=== PATIENT | male | born 1935 | race Caucasian/White ===

== ENCOUNTER 2020-08-26 16:11 | Emergency (ER) | payer MEDICARE, OTHER, SELFPAY ==
--- NOTE | ~2020-08-26 | CT_ITS ---
EXAMINATION: CT ABDOMEN AND PELVIS WITHOUT CONTRAST CLINICAL INFORMATION: Left lower quadrant pain. Diverticulitis. COMPARISON: CT abdomen/pelvis dated 05/11/2018. TECHNIQUE: Multidetector volumetric imaging was performed from the superior aspect of the liver through the pubic symphysis. Sagittal and coronal reformatted images were obtained on the technologist's workstation. This CT examination was performed using dose optimization techniques as appropriate, variously including the following: *Automated exposure control *Adjustment of mA and/or kV according to patient size (this includes techniques or standardized protocols for targeted exams where dose is matched to indication/reason for exam; i.e. extremities or head) *Use of iterative reconstruction technique DLP: 442 mGy-cm FINDINGS: LUNG BASES: The visualized lung bases are unremarkable. LIVER, GALLBLADDER, AND BILIARY TREE: Postsurgical change redemonstrated adjacent to the left hepatic lobe. No discrete hepatic parenchymal lesion or biliary ductal dilatation. Evaluation limited without IV contrast. Status post cholecystectomy. PANCREAS: Unremarkable. SPLEEN: Splenomegaly, new when compared to the prior CT. ADRENAL GLANDS: Severe bilateral adrenal thickening, new when compared to the prior examination. KIDNEYS AND URETERS: Mild bilateral renal cortical thinning. Redemonstration of multiple bilateral renal stones. The largest is on the left within the upper pole, measuring up to 0.7 cm and 1454 Hounsfield units. This is located approximately 6 cm from the posterior axillary line. Stones have increased in prominence when compared to the prior CT. No hydronephrosis or hydroureter. BLADDER: Unremarkable. GASTROINTESTINAL TRACT: Small, sliding hiatal hernia. Sigmoid diverticulosis without evidence of acute diverticulitis. No bowel wall thickening or associated inflammatory change. The appendix is not identified. No small or large bowel obstruction. The previously seen small bowel obstruction has resolved. PERITONEAL CAVITY: No intra-abdominal free air or free fluid. No intra-abdominal mass or organized fluid collection/abscess formation. ABDOMINAL WALL: No significant hernia is appreciated. LYMPH NODES: Normal. VASCULAR: No abdominal aortic dilatation. Atherosclerotic calcifications throughout the abdominal aorta and its branch vessels. Unremarkable IVC. PELVIC VISCERA: Prostate calcifications. OSSEOUS STRUCTURES: Diffuse sclerosis throughout the osseous structures, increased when compared to the prior CT and consistent with metastases. Redemonstration of a compression deformity at L1, unchanged. CT/CT abdomen pelvis wo con IMPRESSION: 1. Small, sliding hiatal hernia. Diverticulosis without evidence of acute diverticulitis. No small or large bowel obstruction. 2. Splenomegaly, new when compared to the prior CT. 3. Severe bilateral adrenal thickening, new when compared to the prior CT. Findings are concerning for metastatic disease. 4. Diffuse sclerotic foci throughout the osseous structures, increased in prominence when compared to the prior examination and consistent with osseous metastases. 5. Multiple bilateral renal stones, increased in size and number when compared to the prior examination. No hydronephrosis or hydroureter. 6. No intra-abdominal ascites or lymphadenopathy.
[2020-08-26 16:18] VITALS: BP 158/89; PULSE 95; RESP 16; TEMP 36.7; O2SAT 99; BMI 24.7
--- NOTE | 2020-08-26 17:33 | ED_ITS ---
HPI - Abdominal Pain General Chief Complaint: Abdominal Pain Stated Complaint: Abdominal pain Time Seen by Provider: 08/26/20 17:33 Source: patient Mode of arrival: ambulatory Limitations: no limitations History of Present Illness HPI narrative: Patient complaining of left lower abdominal pain nor eating well for last few days pain is has improved now no diarrhea no vomiting has slight nausea, no blood in the stool now patient says he feels fine no fever or chills no urinary complaints patient does have history of diverticulosis Related Data Allergies Allergy/AdvReac Type Severity Reaction Status Date / Time No Known Allergies Allergy Unverified 10/28/19 19:39 [No Known Allergies*] Review of Systems Review of Systems Yes all other systems are reviewed and are negative Physical Exam Vital Signs: Vital Signs: Last Vital Signs Temp 98.1 F 08/26/20 20:00 Pulse 68 08/26/20 20:00 Resp 16 08/26/20 20:00 BP 153/80 H 08/26/20 20:00 Pulse Ox 98 08/26/20 20:00 Body Mass Index 24.7 Appearance: Alert. Oriented X3. No acute distress. Eyes: PERRLA, No Nystagmus ENT: Pharynx normal. Oral Mucosa moist Neck: Normal inspection. Neck supple. CVS: Normal heart rate and rhythm. Pulses normal. Respiratory: No respiratory distress. Equal air entry bilateral, no wheezing/rales/rhonchi Abdomen: Soft and mild deep tenderness left lower quadrant Bowel sounds are present, no mass palpable, no CVA tenderness Skin: Skin warm and dry. Normal skin color. Normal skin turgor. Extremities: No lower extremity edema. No calf tenderness Neuro: Oriented X 3. No motor deficit. MDM - Abdominal Pain MDM Narrative Medical decision making narrative: Patient nonspecific left lower quadrant pain CT scan negative showed for metastatic lesion adrenal gland. Lab workup showed elevated PSA likely the source for meds. Patient has also have elevated alkaline phosphatase. Suggestive of a likely prostate cancer patient advised to follow with urologist Medical Records Attestation: I reviewed the patient's medical records. Lab Data Attestation: I reviewed the patient's lab results. Result diagrams: 08/26/20 17:57 08/26/20 17:57 Labs: Lab Results 08/26/20 08/26/20 08/26/20 Range/Units 17:57 17:57 20:08 WBC 7.1 (4.8-10.8) X10*3/uL RBC 4.42 L (4.60-5.80) X10*6/uL Hgb 13.3 L (14.0-18.0) g/dl Hct 38.1 L (42-52) % MCV 86.2 (80-98) fL MCH 30.1 (27.0-33.0) pg MCHC 34.9 (31.0-36.0) g/dl RDW 13.2 (11.0-16.0) % Plt Count 169 (160-400) X10*3/uL MPV 9.6 (9.4-12.4) fL Immature Gran % (Auto) 0.4 (0.0-0.4) % Neut % (Auto) 55.2 (45-73) % Lymph % (Auto) 29.2 (20-40) % Craven % (Auto) 12.0 H (2-11) % Eos % (Auto) 2.8 (0-4) % Baso % (Auto) 0.4 (0-2) % Lymph # (Auto) 2.1 (1.2-4.9) X10*3/uL [place]ven # (Auto) 0.9 (0.1-1.2) X10*3/uL Eos # (Auto) 0.2 (0.0-0.4) X10*3/uL Baso # (Auto) 0.0 (0.0-0.2) X10*3/uL Abs Immat Gran (auto) 0.03 (0.00-0.03) X10*3/uL Absolute Neuts (auto) 3.9 (2.0-8.3) X10*3/uL Absolute Nucleated RBC 0.000 (0.0-0.012) X10*3/uL Nucleated RBC % (auto) 0.0 (0.0-0.2) /100WBC Sodium 139 (135-145) mmol/L Potassium 4.0 (3.3-5.1) mmol/L Chloride 103 (96-108) mmol/L Carbon Dioxide 24 (22-29) mmol/L Anion Gap 16 (12-20) BUN 16 (9-16) mg/dL Creatinine 1.25 (0.5-1.4) mg/dL Estim Creat Clear Calc 36.0 Estimated GFR 55 Random Glucose 107 (60-115) mg/dL Calcium 9.9 (8.4-10.2) mg/dL Total Bilirubin 1.4 H (0.0-1.0) mg/dL Direct Bilirubin 0.5 (0.0-0.5) mg/dL AST 29 (5-37) U/L ALT 10 (0-40) U/L Alkaline Phosphatase 563 H (39-117) U/L Total Protein 7.0 (6.5-8.0) g/dL Albumin 4.2 (3.5-5.0) g/dL Lipase 71 (8-78) U/L Carcinoembryonic Ag 1.50 ng/mL Prostate Specific Ag 34.31 H (<0.05-4.0) ng/mL Urine Color YELLOW Urine Appearance CLEAR Urine pH 7.0 (5.0-8.0) Ur Specific [place] 1.015 (1.005-1.025) Urine Protein TRACE (NEG-TRACE) MG/DL Urine Glucose (UA) NEG (NEG) MG/DL Urine Ketones 5 (NEG) MG/DL Urine Blood NEG (NEG) Urine Nitrite NEG (NEG) Ur Leukocyte Esterase NEG (NEG) Discharge Plan Discharge Clinical Impression: Prostate CA Patient Disposition: Home, Self-Care Instructions: Prostate Cancer (DC) Additional Instructions: Drink plenty of fluids Follow-up with urologist and PCP further management Referrals: Jay Ham MD [Physician] - 5 days Interventions: ED Discharge Assessment Last Done: 08/26/20 21:18 Discharge Date/Time: 08/26/20 21:18 [facility] Past Medical History Medical History HTN (hypertension) Prostate cancer Social History Social History Alcohol intake: former Patient Tobacco Use Status: Never used Tobacco Use of substances other than those prescribed or required for medical reasons: No Advance Directives: No Advance Directives Information Provided: No
[2020-08-26 18:02] LABS: MANUAL DIFF FLAG NO
[2020-08-26 18:05] LABS: Basophils Percent Auto 0.4 % (0-2); Eosinophils Absolute Auto 0.2 X10*3/uL (0.0-0.4); Eosinophils Percent Auto 2.8 % (0-4); Hematocrit 38.1 % (42-52); Hemoglobin 13.3 g/dl (14.0-18.0); Imm Gran Abs Auto 0.03 X10*3/uL (0.00-0.03); Imm Gran Pct Auto 0.4 % (0.0-0.4); Lymphocytes Absolute Auto 2.1 X10*3/uL (1.2-4.9); Lymphocytes Percent Auto 29.2 % (20-40); Mean Corpuscular HGB Conc 34.9 g/dl (31.0-36.0); Mean Corpuscular Hemoglobin 30.1 pg (27.0-33.0); Mean Corpuscular Volume 86.2 fL (80-98); Mean Platelet Volume 9.6 fL (9.4-12.4); Monocytes Absolute Auto 0.9 X10*3/uL (0.1-1.2); Neutrophils Absolute Auto 3.9 X10*3/uL (2.0-8.3); Neutrophils Percent Auto 55.2 % (45-73); Platelet Count 169 X10*3/uL (160-400); Red Blood Count 4.42 X10*6/uL (4.60-5.80); Red Cell Distribution Width 13.2 % (11.0-16.0); White Blood Count 7.1 X10*3/uL (4.8-10.8)
[2020-08-26 18:31] LABS: Alanine Aminotransferase 10 U/L (0-40); Albumin Level 4.2 g/dL (3.5-5.0); Alkaline Phosphatase 563 U/L (39-117); Anion Gap 16 (12-20); Aspartate Amino Transferase 29 U/L (5-37); Bilirubin Direct 0.5 mg/dL (0.0-0.5); Bilirubin Total 1.4 mg/dL (0.0-1.0); Blood Urea Nitrogen 16 mg/dL (9-16); Calcium 9.9 mg/dL (8.4-10.2); Carbon Dioxide 24 mmol/L (22-29); Chloride 103 mmol/L (96-108); Estimated Glomerular Filt Rate 55; Glucose Random 107 mg/dL (60-115); Lipase 71 U/L (8-78); Sodium 139 mmol/L (135-145)
[2020-08-26 20:00] VITALS: BP 153/80; PULSE 68; RESP 16; TEMP 36.7; O2SAT 98
[2020-08-26 20:16] LABS: Glucose Urine UA NEG (NEG); Leukocyte Esterase Urine NEG (NEG); Nitrite Urine NEG (NEG); Specific Gravity - Urine 1.015 (1.005-1.025); Urine Blood NEG (NEG); Urine Ketones 5 MG/DL (NEG); Urine Protein TRACE MG/DL (NEG-TRACE)
[2020-08-26 20:17] LABS: Appearance Urine CLEAR; Color Urine YELLOW
[2020-08-26 20:41] LABS: Prostate Specific Antigen 34.31 ng/mL (<0.05-4.0)
== END 2020-08-26 21:18 | disposition home or self-care (01) ==
PROVIDERS: Emergency Provider Internal Medicine; PCP Internal Medicine
DX: C61 Malignant neoplasm of prostate (principal); I10 Essential (primary) hypertension
CPT/HCPCS: 36415; 74176; 80048; 80076; 81003; 82378; 83690; 84153; 85025; 99284